=== PATIENT | female | born 1980 ===

== ENCOUNTER 2017-08-29 05:32 | Inpatient (IN) ==
[2017-08-29] MEDS ORDERED: PIPERACILLIN/TAZOBACTAM 3,375 MG in SODIUM CHLORIDE 0.9% 100 ML IV STA (05:50)
[2017-08-29] MEDS ORDERED: PIPERACILLIN/TAZOBACTAM 3,375 MG VIAL IV ONE (06:12)
[2017-08-29] MEDS ORDERED: SODIUM CHLORIDE 0.9% 0 ML IV ONE (06:12)
[2017-08-29] MEDS ORDERED: SODIUM CHLORIDE 0.9% 100 ML IV ONE (06:12)
[2017-08-29] MEDS ORDERED: GLUCAGON 1 MG VIAL IM PRN (06:16)
[2017-08-29] MEDS ORDERED: ACETAMINOPHEN 325 MG TABLET PO PRN (06:16)
[2017-08-29] MEDS ORDERED: DEXTROSE 50% 25 GM/50 ML VIAL IV PRN (06:16)
[2017-08-29] MEDS: PIPERACILLIN/TAZOBACTAM 3,375 MG in SODIUM CHLORIDE 0.9% 100 ML IV SCH ×3 (07:09→21:36)
[2017-08-29] MEDS: SODIUM CHLORIDE 0.9% 1,000 ML IV SCH ×2 (07:09→16:25)
[2017-08-29] MEDS: HYDROmorphone 2 MG/1 ML VIAL IV PRN ×3 (07:10→17:54)
[2017-08-29] MEDS: INSULIN REGULAR 100 UNIT/ML SUBCUT SCH ×4 (07:38→20:24)
[2017-08-29] MEDS ORDERED: metFORMIN 500 MG TABLET PO SCH (08:00)
[2017-08-29] MEDS: LISINOPRIL 10 MG TABLET PO SCH (08:23)
[2017-08-29] MEDS: glyBURIDE 5 MG TABLET PO SCH (08:23)
[2017-08-29] MEDS: ASPIRIN CHEW 81 MG TABLET PO SCH (08:23)
[2017-08-29] MEDS: PANTOPRAZOLE 40 MG VIAL IV SCH (08:57)
[2017-08-29] MEDS ORDERED: ALBUTEROL/IPRATROPIUM 3 ML NEB RESP TX PRN (09:38)
[2017-08-29] MEDS ORDERED: PROMETHAZINE 25 MG/1 ML VIAL IM ONE (10:00)
[2017-08-29] MEDS: ONDANSETRON 4 MG/2 ML VIAL IV PRN (10:00)
[2017-08-29] MEDS ORDERED: PROMETHAZINE 25 MG/1 ML VIAL ONE (10:05)
[2017-08-29] MEDS ORDERED: SCOPOLAMINE 1.5 MG PATCH TRANSDERM ONE (12:56)
[2017-08-29] MEDS ORDERED: BUPIVACAINE 0.25% 50 ML VIAL ONE (13:50)
[2017-08-29] MEDS ORDERED: TISSUE ADHESIVE 1 EACH APPLICATOR TOP ONE (13:50)
[2017-08-29] MEDS ORDERED: PROPOFOL 200 MG/20 ML VIAL IV ONE (15:29)
[2017-08-29] MEDS ORDERED: MIDAZOLAM 2 MG/2 ML VIAL ONE (15:30)
[2017-08-29] MEDS ORDERED: ONDANSETRON 4 MG/2 ML VIAL ONE (15:30)
[2017-08-29] MEDS ORDERED: fentaNYL 100 MCG/2 ML VIAL ONE (15:30)
[2017-08-29] MEDS ORDERED: ROCURONIUM 100 MG/10 ML VIAL IV ONE (15:30)
[2017-08-29] MEDS ORDERED: GLYCOPYRROLATE 0.4 MG/2 ML VIAL ONE (15:31)
[2017-08-29] MEDS ORDERED: SEVOFLURANE 1 UNIT/15 MINUTE INH ONE (15:31)
[2017-08-29] MEDS ORDERED: HYDROmorphone 2 MG/1 ML VIAL ONE (15:31)
[2017-08-29] MEDS ORDERED: KETOROLAC 30 MG/1 ML VIAL ONE (15:31)
[2017-08-29] MEDS ORDERED: NEOSTIGMINE 10 MG/10 ML VIAL ONE (15:32)
[2017-08-30] MEDS: ONDANSETRON 4 MG/2 ML VIAL IV PRN ×2 (01:27→23:27)
[2017-08-30] MEDS: PIPERACILLIN/TAZOBACTAM 3,375 MG in SODIUM CHLORIDE 0.9% 100 ML IV SCH ×3 (05:59→22:34)
[2017-08-30] MEDS: SODIUM CHLORIDE 0.9% 1,000 ML IV SCH ×2 (06:29→10:23)
[2017-08-30 07:49] LABS: Basophils # 0.1 10*3/uL (0.0-0.2); Basophils % 0.4 % (0.0-0.8); Eosinophils # 0.2 10*3/uL (0.0-0.87); Eosinophils % 1.2 % (0.00-10.9); Hematocrit 32.3 VOL% (35.7-47.0); Immature Granulocytes % 0.8 %; Immature Granulocytes Absolute 0.15 #; Lymphocytes # 1.6 10*3/uL (1.4-4.0); Lymphocytes % 8.5 % (21.3-54.2); Mean Corpuscular HGB Conc 34.1 GM/DL (32-36); Mean Corpuscular Hemoglobin 28 PG (27-34); Mean Corpuscular Volume 81.8 FL (87-102); Monocytes # 0.8 10*3/uL (0.11-0.8); Monocytes % 4.6 % (1.7-12.7); Neutrophils # 15.5 10*3/uL (1.4-7.4); Neutrophils % 84.5 % (38.7-73.9); Platelet Count 123 T/CUMM (130-400); Red Blood Count 3.95 MC/CUMM (3.8-5.5); Red Cell Distribution Width 13.2 % (9.3-17.3); White Blood Count 18.4 T/CUMM (4-12)
[2017-08-30 08:21] LABS: Albumin 2.6 G/DL (3.4-5.0); Bilirubin,Total 0.9 MG/DL (0.2-1.0); Calcium 7.9 MG/DL (8.5-10.1); Magnesium 1.9 MG/DL (1.8-2.4); Osmolality,Calculated 281.7 MOS/KG (273-304); Total Protein 5.7 G/DL (6.4-8.3)
[2017-08-30] MEDS: ASPIRIN CHEW 81 MG TABLET PO SCH (08:24)
[2017-08-30] MEDS: glyBURIDE 5 MG TABLET PO SCH (08:24)
[2017-08-30] MEDS: INSULIN REGULAR 100 UNIT/ML SUBCUT SCH ×4 (08:25→20:27)
[2017-08-30] MEDS: PANTOPRAZOLE 40 MG VIAL IV SCH (08:27)
[2017-08-30] MEDS: LISINOPRIL 10 MG TABLET PO SCH (08:28)
[2017-08-31 05:48] LABS: Basophils % 0.3 % (0.0-0.8); Eosinophils # 0.3 10*3/uL (0.0-0.87); Eosinophils % 2.8 % (0.00-10.9); Hematocrit 34.6 VOL% (35.7-47.0); Hemoglobin 11.6 GM/DL (12.0-16.0); Immature Granulocytes % 0.5 %; Immature Granulocytes Absolute 0.05 #; Lymphocytes # 2.1 10*3/uL (1.4-4.0); Lymphocytes % 19.5 % (21.3-54.2); Mean Corpuscular HGB Conc 33.5 GM/DL (32-36); Mean Corpuscular Hemoglobin 28 PG (27-34); Mean Corpuscular Volume 83.2 FL (87-102); Mean Platelet Volume 11.4 FL (9.6-12.0); Monocytes # 0.8 10*3/uL (0.11-0.8); Monocytes % 7.3 % (1.7-12.7); Neutrophils # 7.3 10*3/uL (1.4-7.4); Neutrophils % 69.6 % (38.7-73.9); Platelet Count 141 T/CUMM (130-400); Red Blood Count 4.16 MC/CUMM (3.8-5.5); Red Cell Distribution Width 13.1 % (9.3-17.3); White Blood Count 10.6 T/CUMM (4-12)
[2017-08-31] MEDS: glyBURIDE 5 MG TABLET PO SCH (09:23)
[2017-08-31] MEDS: LISINOPRIL 10 MG TABLET PO SCH (09:23)
[2017-08-31] MEDS: ASPIRIN CHEW 81 MG TABLET PO SCH (09:23)
[2017-08-31] MEDS: INSULIN REGULAR 100 UNIT/ML SUBCUT SCH ×4 (09:25→20:58)
[2017-08-31] MEDS: PANTOPRAZOLE 40 MG VIAL IV SCH (09:29)
[2017-08-31] MEDS: PIPERACILLIN/TAZOBACTAM 3,375 MG in SODIUM CHLORIDE 0.9% 100 ML IV SCH (09:35)
[2017-08-31] MEDS: AMOXICILLIN/CLAV 500 MG TABLET PO SCH ×2 (12:45→20:58)
[2017-08-31] MEDS: SODIUM HYPOCHLORITE 0.25% IRRIG 473 ML BOTTLE TOP SCH (13:27)
[2017-09-01] MEDS: AMOXICILLIN/CLAV 500 MG TABLET PO SCH ×2 (04:45→12:16)
[2017-09-01 08:52] VITALS: BP 148/84
[2017-09-01] MEDS: glyBURIDE 5 MG TABLET PO SCH (09:26)
[2017-09-01] MEDS: LISINOPRIL 10 MG TABLET PO SCH (09:27)
[2017-09-01] MEDS: INSULIN REGULAR 100 UNIT/ML SUBCUT SCH (09:27)
[2017-09-01] MEDS: ASPIRIN CHEW 81 MG TABLET PO SCH (09:27)
[2017-09-01] MEDS: PANTOPRAZOLE 40 MG VIAL IV SCH (09:32)
[2017-09-01] MEDS: SODIUM HYPOCHLORITE 0.25% IRRIG 473 ML BOTTLE TOP SCH (09:32)
== END 2017-09-01 12:50 | disposition home or self-care (01) | DRG 342 ==
LOC: EDBD → EDUNIT# → N.ED 05:32 → N.EDINP 05:50 → N.3E 06:01
PROVIDERS: ADMIT Surgery; ATTEND Surgery